=== PATIENT | male | born 1945 | race Caucasian/White ===

== ENCOUNTER → 2018-12-28 | Outpatient (CLI) | payer MEDICARE ==
[2018-12-28 13:22] LABS: Basophils # (A) 0.1 k/uL (0-0.2); Basophils % (A) 1 %; Eosinophils # (A) 0.4 k/uL (0-0.7); Eosinophils % (A) 6 %; HCT 42.4 % (39.0-53.0); HGB 14.3 gm/dL (13.0-17.5); Lymphocytes % (A) 30 %; MCHC 33.8 g/dL (31.0-37.0); MCV 91.6 fL (80.0-100.0); Mean Platelet Volume 7.5; Monocytes # (A) 0.4 k/uL (0-1.0); Monocytes % (A) 7 %; Neutrophils # (A) 3.5 k/uL (1.3-7.7); Neutrophils % (A) 54 %; Platelet Count 240 k/uL (150-450); RBC 4.63 m/uL (4.30-5.90); WBC 6.6 k/uL (3.8-10.6)
[2018-12-28 13:56] LABS: Potassium 4.3 mmol/L (3.5-5.1)
== END | disposition home or self-care (01) ==
LOC: LABPAT 11:57
PROVIDERS: ATTEND Orthopaedic Surgery
DX: Z01.818 Encounter for other preprocedural examination (principal); Z01.812 Encounter for preprocedural laboratory examination; M23.91 Unspecified internal derangement of right knee
CPT/HCPCS: 36415; 80051; 85025; 93005

== ENCOUNTER → 2019-01-05 | Outpatient (CLI) | payer MEDICARE ==
--- NOTE | 2019-01-05 21:36 | MR ---
EXAMINATION TYPE: MR knee RT wo con DATE OF EXAM: 01/05/2019 COMPARISON: Outside radiographs 11/30/2018 HISTORY: 73-year-old male with right KNEE PAIN TECHNIQUE: Multiplanar, multisequence imaging of the right knee is performed without IV contrast. FINDINGS: ACL and PCL are intact. Edematous change on either side of the intact MCL. LCL complex is intact. There is a complex, multidirectional tear of the posterior horn extending into the body of the medial meniscus with mild extrusion of the meniscal body. Mild superficial cartilage irregularity throughou t the medial compartment with overall preserved articular cartilage volume. There is degenerative signal within the posterior horn and body of the lateral meniscus. Signal seems to contact the tibial articular surface on a couple images. There is a partially discoid lateral men iscus with bowtie seen on 4 consecutive sagittal slices. Overall lateral compartment articular cartil age volume is maintained. Focal moderate to severe irregular cartilage loss along the superior aspect of the mid patella. Under lying degenerative marrow signal changes are present. There is also focal moderate thickness cartilag e loss along the trochlear groove.. Extensor mechanism is intact. Mild nonspecific anterior soft tissue swelling. Moderate knee joint effusion without significant Gamez's cyst. Normal popliteal artery anatomy. Mild diffuse muscular atrophy. No suspicious bone marrow replacement . IMPRESSION: 1. Complex multidirectional tear involving the posterior horn extending into the body of the medial m eniscus. Slight extrusion of the medial meniscal body. Mild superficial irregularity of articular car tilage in the medial compartment. 2. Partially discoid lateral meniscus with degenerative signal involving the posterior horn and body. Signal barely contacts the tibial articular surface on a couple images suggesting possible subtle me niscal tear. 3. Grade 1 MCL sprain. 4. Moderate focal patellofemoral compartmental osteoarthrosis. 5. Moderate knee joint effusion.
== END ==
LOC: RADMRIMAIN 14:54
PROVIDERS: ATTEND Orthopaedic Surgery
DX: S83.411A Sprain of medial collateral ligament of right knee, initial encounter (principal); S83.241A Other tear of medial meniscus, current injury, right knee, initial encounter; M17.11 Unilateral primary osteoarthritis, right knee

== ENCOUNTER 2019-01-17 13:57 | Day surgery (SDC) | payer MEDICARE ==
[2019-01-13 09:42] VITALS: BMI 27.3
--- NOTE | 2019-01-16 09:22 | HP ---
HISTORY AND PHYSICAL CHIEF COMPLAINT: Right knee pain. HISTORY OF PRESENT ILLNESS: The patient is a 73-year-old retired gentleman who presents with progressive right knee pain over the past month. He notes medial pain along with intermittent swelling. He has giving way sensations. He has tried medications with only partial temporary relief, in addition to an injection. He is using a cane. He notes the pain does limit his normal function and activities. PAST MEDICAL HISTORY: Significant for hypertension. PAST SURGICAL HISTORY: Significant for cataract removal. CURRENT MEDICATIONS: 1. Hydrochlorothiazide. 2. Losartan. 3. Aspirin. He notes allergies to PENICILLIN. FAMILY HISTORY: Significant for cancer and stroke. SOCIAL HISTORY: Negative for current alcohol use. He notes he previously smoked. 16 POINT REVIEW OF SYSTEMS: Otherwise reviewed and is noncontributory. PHYSICAL EXAMINATION: On examination, the patient is approximately 5 foot 8, 180 pounds of mesomorphic habitus. HEENT exam is nonfocal. NECK: Supple. He has painless passive motion of the right hip. Straight leg raise is negative. Active motion right knee -8 to 110 degrees of flexion. He has a mild effusion. He is tender about the medial joint line. Collaterals are stable, Blaise is negative, Manuel's elicits medial pain. His distal neurovascular exam appears intact in the right lower extremity. MRI report for the right knee shows evidence of a posterior medial meniscal tear along with possible discoid lateral meniscus. IMPRESSION: 1. Right knee moderate medial compartment osteoarthrosis. 2. Right knee internal derangement with symptomatic medial meniscal tear. RECOMMENDATIONS: I talked to the patient at length regarding his condition along with treatment options. At this point, he remains quite symptomatic, having pain and mechanical symptoms despite conservative measures. After thorough discussion, he opts to proceed with surgery. We will plan to proceed with arthroscopic evaluation with probable partial medial meniscectomy. Risks and benefits were discussed at length in layman's terms. We will likely perform that as an outpatient procedure. MMODL / IJN: [id number] /
[~2019-01-17 13:57] MED LIST: DEXAMETHASONE SOD PHOSPHATE 10 MG/ML 1 ML VIAL IV ONE; LACTATED RINGERS 1,000 ML IV SCH; MIDAZOLAM 2 MG/2 ML VIAL IV PRN; ONDANSETRON 4 MG/2 ML VIAL IVP ONE
[2019-01-17] MEDS ORDERED: LIDOCAINE 1% 20 ML VIAL (10MG/ML) FOR IV START INTRADERMA ONE (14:25)
[2019-01-17] MEDS: ceFAZolin IN SWFI 2 GM/20 ML SYRINGE IVP ONE ×2 (14:32→16:32)
[2019-01-17] MEDS ORDERED: LIDOCAINE 1% INJ 10MG/ML (20 ML MDV) ONE (16:30)
[2019-01-17] MEDS ORDERED: PROPOFOL 10 MG/ML 20 ML VIAL IV ONE (16:30)
[2019-01-17] MEDS ORDERED: fentaNYL (PF) 50 MCG/ML 2 ML AMP ONE (16:30)
[2019-01-17] MEDS ORDERED: LACTATED RINGERS 1,000 ML IV ONE (16:53)
[2019-01-17] MEDS ORDERED: EPINEPHrine (PF) 1 ML in SODIUM CHLORIDE 0.9% IRRIGATIO 3,000 ML IRRIGATION ONE (16:54)
--- NOTE | 2019-01-17 17:23 | P.OP ---
Date of Procedure: 01/17/19 Preoperative Diagnosis: Right knee symptomatic medial meniscal tear Postoperative Diagnosis: Same in addition to grade 3 chondral injury distal lateral medial femoral condyle Procedure(s) Performed: Right knee arthroscopic partial medial meniscectomy/medial femoral chondrectomy/microfracture medial femoral condyle Anesthesia: TAM Surgeon: Fortino Christensen Estimated Blood Loss (ml): 10 Pathology: none sent Condition: stable Disposition: PACU Indications for Procedure: The patient's a 73-year-old male who presents with progressive right knee pain and mechanical symptoms despite conservative measures. A discussion of the risks and benefits of operative intervention versus continued conservative measures was made with the patient. He opted proceed with surgery. Operative risks to include infection, neurovascular injury, development of blood clots, possible incomplete resolution of symptoms, possible worsening symptoms and need for subsequent procedures was discussed. Informed consent was obtained. Operative Findings: As below Description of Procedure: The patient was brought to the operating room, and after induction of general anesthesia examined the right knee. Collaterals were stable, Blaise was nega tive, and posterior drawer was negative. The right lower extremity was prepped and draped in a normal fashion. A superior lateral portal was made through a 3 mm skin incision superior and lateral to the patella. This was used for outflow. A lateral portal was made through a 5 mm vertical skin incision lateral to the patella tendon above the joint line. Diagnostic arthroscopy was performed. On inspection of the medial compartment, a complex tear involving the posterior horn of the medial meniscus in the white-red junction was noted.. This was debrided back to stable base with straight baskets and a motorized shaver. A grade 3 chondral injury was noted involving the distal lateral portion the medial femoral condyle. There was a loose chondral fragment debrided back to stable base with a motorized shaver. Microfracture was then performed with the chondral of breaching the subchondral surface down to the bone marrow elements. On inspection of the notch, the anterior cruciate lig ament appeared to be intact. On inspection of the lateral compartment no significant meniscal or cartilage pathology was noted. On inspection of the patellofemoral articulation grade 2 chondral changes were noted diffusely. The gutters were clear debris. The knee was then thoroughly irrigated. The portals were closed with Steri-Strips. A sterile dressing was applied in addition to a compression stocking. The patient was awoken from general anesthesia and transferred to recovery room in good condition. Blood loss was estimated at 10 mL. No complications were incurred.
[2019-01-17 17:34] VITALS: TEMP 97.2
[2019-01-17] MEDS: HYDROmorphone 0.5 MG/0.5 ML SYRINGE IVP PRN ×3 (17:42→18:26)
[2019-01-17 18:03] VITALS: RESP 16
[2019-01-17] MEDS ORDERED: LABETALOL SYRINGE 5 MG/ML IVP ONE (18:26)
[2019-01-17] MEDS ORDERED: hydrALAZINE HCL 20 MG/ML 1 ML VIAL IVP ONE (18:29)
[2019-01-17] MEDS ORDERED: HYDROcodone/APAP 7.5-325MG 1 EACH TAB PO ONE (18:40)
[2019-01-17 19:10] VITALS: BP 147/83; PULSE 94
== END 2019-01-17 19:21 | disposition home or self-care (01) ==
LOC: OR 13:57
PROVIDERS: ATTEND Orthopaedic Surgery
DX: S83.241A Other tear of medial meniscus, current injury, right knee, initial encounter (principal); S83.31XA Tear of articular cartilage of right knee, current, initial encounter; X58.XXXA Exposure to other specified factors, initial encounter; M17.11 Unilateral primary osteoarthritis, right knee; Z87.891 Personal history of nicotine dependence; I10 Essential (primary) hypertension; Z86.73 Personal history of transient ischemic attack (TIA), and cerebral infarction without residual deficits; Z79.82 Long term (current) use of aspirin; Z79.899 Other long term (current) drug therapy; Z91.09 Other allergy status, other than to drugs and biological substances; Z88.0 Allergy status to penicillin
CPT/HCPCS: 29881; 29879; J0360; J1100; J2405; J0171; J2001; J3010; J2704; J1170; J0690